=== PATIENT | female | born 1950 | race Caucasian/White ===

== ENCOUNTER 2021-07-30 09:38 | Inpatient (IN) | payer OTHER ==
[~2021-07-30] VITALS: Ht 170.2 cm; Wt 91.6 kg
[2021-07-30 09:40] VITALS: BP 148/73
[2021-07-30 10:26] LABS: HEMATOCRIT 34.4 % (37.0-47.0); HEMOGLOBIN 11.2 gm/dL (12.0-15.0); MCH 23.9 pg (26.0-34.0); MCHC 32.6 g/dL (28.0-37.0); MCV 73.4 fL (80.0-100.0); RBC 4.69 mil/uL (4.20-5.00); RDW 15.3 % (10.5-14.5); WBC 8.5 thou/uL (4.0-11.0)
[2021-07-30 10:46] LABS: ALBUMIN 3.2 g/dL (3.4-5.0); CREATININE 1.4 mg/dL (0.6-1.0); POTASSIUM 4.1 mmol/L (3.5-5.1); TOTAL BILIRUBIN 0.4 mg/dL (0.2-1.0); TOTAL PROTEIN 6.3 g/dL (6.4-8.2)
[2021-07-30 11:33] LABS: URINE BILIRUBIN NEGATIVE (Negative); URINE BLOOD TRACE (Negative); URINE CLARITY CLEAR; URINE COLOR YELLOW; URINE GLUCOSE-RANDOM* 3+ (Negative); URINE KETONES TRACE (Negative); URINE LEUKOCYTES-REFLEX NEGATIVE (Negative); URINE NITRITE-REFLEX NEGATIVE (Negative); URINE PROTEIN (DIPSTICK) NEGATIVE (Negative); URINE UROBILINOGEN 0.2 E.U./dl (0.2-1.0)
[2021-07-30 11:40] LABS: AMP/METHAMP Negative (Negative); BARBITURATES Negative (Negative); BENZODIAZEPINES Negative (Negative); COCAINE Negative (Negative); METHADONE Negative (Negative); OPIATES Negative (Negative); PCP Negative (Negative)
[2021-07-30] MEDS ORDERED: GLIPIZIDE ER2.5 MG PO (12:05)
[2021-07-30] MEDS ORDERED: NORVASC 2.5 MG2.5 M1 PO (12:05)
[2021-07-30] MEDS ORDERED: TRAZODONE HCL50 MG PO (12:06)
[2021-07-30] MEDS ORDERED: CELECOXIB100 MG PO (12:06)
[2021-07-30 15:06] LABS: BE(vivo) -2.3 mmol/L (-2 to +3); HCO3 21.6 mmol/L (22.0-26.0); PCO2 34.1 mmHg (35.0-45.0); PO2 88.8 mmHg (80.0-100.0); pH 7.419 (7.360-7.450)
[2021-07-30 15:38] LABS: % SATURATION 6 % (20-39); IRON 22 ug/dL (50-170); TIBC 355 ug/dL (250-450)
[2021-07-30 16:05] LABS: FOLIC ACID 17.1 ng/mL (8.6-58.9)
[2021-07-30 16:22] LABS: CALCIUM 9.6 mg/dL (8.5-10.1); CREATININE 1.1 mg/dL (0.6-1.0); MAGNESIUM 1.5 mg/dL (1.8-2.4); PHOSPHORUS 2.7 mg/dL (2.6-4.7); POTASSIUM 3.5 mmol/L (3.5-5.1)
[2021-07-30 21:19] LABS: CALCIUM 9.5 mg/dL (8.5-10.1); POTASSIUM 3.3 mmol/L (3.5-5.1)
[2021-07-30 21:24] LABS: ALBUMIN 3.2 g/dL (3.4-5.0); PHOSPHORUS 2.7 mg/dL (2.6-4.7)
[2021-07-30 21:39] VITALS: BP 169/63
[2021-07-31 03:05] LABS: GLYCOHEMOGLOBIN (HGB A1C) 13.1 % (4.8-5.6)
[2021-07-31 06:25] LABS: ABSOLUTE NEUTROPHILS 7.8 thou/uL (1.4-8.2); BASOPHILS 0.5 % (0.0-2.0); HEMATOCRIT 36.7 % (37.0-47.0); HEMOGLOBIN 11.5 gm/dL (12.0-15.0); LYMPHOCYTES 11.7 % (24.0-44.0); MCHC 31.4 g/dL (28.0-37.0); MCV 73.1 fL (80.0-100.0); MONOCYTES 9.3 % (1.0-8.0); PLATELET COUNT 322 thou/uL (150-400); POLYS 77.5 % (36.0-66.0); RBC 5.03 mil/uL (4.20-5.00); RDW 14.9 % (10.5-14.5); WBC 10.1 thou/uL (4.0-11.0)
[2021-07-31 06:57] LABS: ALBUMIN 2.8 g/dL (3.4-5.0); CALCIUM 9.3 mg/dL (8.5-10.1); MAGNESIUM 1.7 mg/dL (1.8-2.4); PHOSPHORUS 2.6 mg/dL (2.5-4.9); POTASSIUM 3.2 mmol/L (3.5-5.1); TOTAL BILIRUBIN 0.4 mg/dL (0.2-1.0); TOTAL PROTEIN 6.1 g/dL (6.4-8.2)
--- NOTE | 2021-07-31 08:05 | NUR ---
BLOOD SUGAR REASSESSED 114MG/DL NO TITRATION NEEDED ON INSULIN DRIP AT THIS TIME. INSULIN CONTINUES TO INFUSE AT 2UNITS/HR
--- NOTE | 2021-07-31 08:09 | EKG ---
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 : 1950 Requested By: Tasha Perez Order Number: [id number] : Efren Pederson Measurements Intervals [place] Rate: 99 P: 46 MO: 188 QRS: -25 QRSD: 90 T: 13 QT: 386 QTc: 496 Interpretive Statements Sinus rhythm Abnormal R-wave progression, early transition LVH with secondary repolarization abnormality No previous ECG available for comparison Electronically Signed On 07-31-2021 8:09:40 CDT by Efren Pederson [email or web address] <ELECTRONICALLY SIGNED> By: Efren Pederson MD, [facility] 07/31/21 0809 [id number] 6 Efren Pederson MD, FACC /EPI
[2021-07-31 08:57] VITALS: BP 202/93
[2021-07-31 09:24] VITALS: BP 151/129
--- NOTE | 2021-07-31 11:48 | EKG ---
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: : 1950 Requested By: Tasha Perez Order Number: [id number] : Efren Pederson Measurements Intervals [place] Rate: 88 P: 30 RI: 157 QRS: -30 QRSD: 98 T: 52 QT: 393 QTc: 476 Interpretive Statements Sinus rhythm Compared to ECG 07/30/2021 09:47:14 Left ventricular hypertrophy no longer present Early repolarization no longer present Electronically Signed On 07-31-2021 11:48:08 CDT by Efren Pederson [email or web address] <ELECTRONICALLY SIGNED> By: Efren Pederson MD, [facility] 07/31/21 1148 27 27 Efren Pederson MD, FACC /EPI
[2021-07-31 11:55] VITALS: BP 184/79
[2021-07-31 15:40] VITALS: BP 160/89
--- NOTE | 2021-07-31 18:37 | NUR ---
PT TX FROM ED THIS AM. PT IS IMPULSIVE AND CONFUSED. PT AFEBRILE, ADEQUATE UOP, NO BM, POOR APPETITE. INSULIN GTT OFF BEFORE COMING TO CCU. PT AND AT BEDSIDE HAVE BEEN THOUROUGHLY UPDATED AND EDUCATED ON PT CONDITION AND POC. PT SLOWLY PROGRESSING TOWARDS POC.
[2021-07-31 19:26] LABS: MAGNESIUM 1.4 mg/dL (1.8-2.4); PHOSPHORUS 3.3 mg/dL (2.6-4.7)
[2021-07-31 20:00] VITALS: BP 149/63
[2021-07-31 20:29] VITALS: BP 150/90
[2021-08-01 04:30] VITALS: BP 152/78
[2021-08-01 06:51] LABS: ABSOLUTE NEUTROPHILS 5.9 thou/uL (1.4-8.2); BASOPHILS 0.9 % (0.0-2.0); EOSINOPHILS 4.9 % (0.0-3.0); HEMATOCRIT 36.6 % (37.0-47.0); HEMOGLOBIN 11.4 gm/dL (12.0-15.0); LYMPHOCYTES 19.3 % (24.0-44.0); MCHC 31.3 g/dL (28.0-37.0); MCV 73.6 fL (80.0-100.0); MONOCYTES 9.9 % (1.0-8.0); PLATELET COUNT 309 thou/uL (150-400); RBC 4.97 mil/uL (4.20-5.00); RDW 15.3 % (10.5-14.5)
[2021-08-01 07:06] LABS: CALCIUM 9.5 mg/dL (8.5-10.1); PHOSPHORUS 3.7 mg/dL (2.5-4.9); POTASSIUM 3.8 mmol/L (3.5-5.1); TOTAL BILIRUBIN 0.8 mg/dL (0.2-1.0); TOTAL PROTEIN 6.3 g/dL (6.4-8.2)
[2021-08-01 07:45] VITALS: BP 168/71
--- NOTE | 2021-08-01 08:18 | NUR ---
PAIN WELL CONTROLLED.CONFUSED THIS MORNING AND TRYING TO GET OUT OF BED.PT TALKED TO HER SON ABOUT HER WANTING TO GO HOME.ONETIME OLANZAPINE GIVEN ORDERED.MONITOR SHOWS SR.POC CONTINUED
[2021-08-01 10:51] VITALS: BP 168/71
--- NOTE | 2021-08-01 11:00 | NUR ---
PT RESTING COMFORTABLY. AXO-4. PAIN CONTROLLED. PT AFEBRILE, ADEQUATE UOP, NO BM, APPROPRIATE APPETITE. PT AND AT BEDSIDE HAVE BEEN THOUROUGHLY UPDATED AND EDUCATED ON PT CONDITION AND POC. PT PROGRESSED TOWARDS POC. DC HOME TODAY WITH HOME HEALTH AND .
--- NOTE | 2021-08-01 11:28 | NUR ---
INITIAL ASSESSMENT/DISCHARGE NOTE: SW reviewed chart and spoke with nursing. 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 Pt is medically stable to discharge home today. Orders written for HH services. ROBERTO met with pt and spouse at bedside. Introduced role of SW. Pt is alert/orientated. Pt and spouse live at home. Pt does have a cane and walker to use if needed. Pt and spouse are both ready to discharge home and pt's spouse will drive pt home. ROBERTO discussed HH services and provided HH list for review. No preference of HH provider voiced. SW confirmed pt's home address and phone number. Pt's PCP is Dr. Sonny Hopkins. ROBERTO faxed HH referral and discharge ppwk to [facility] . Notified HH liaison of new referral. Contact info for HH placed in pt's discharge summary. No additional SW needs identified at this time, but is available to assist should needs arise.
[2021-08-02 15:08] LABS: GLOBULIN TOTAL 2.8 g/dL (2.2-3.9); M-SPIKE 0.2 g/dL (Not Observed)
== END 2021-08-01 11:41 | disposition home health service (06) | DRG 637 ==
LOC: ER 09:38 → 2N 12:00 → EROBS 12:00 → 2N 07-31 09:42
PROVIDERS: Emergency Medicine; ADMIT Internal Medicine; ATTEND Internal Medicine
DX: E11.10 Type 2 diabetes mellitus with ketoacidosis without coma (principal); N17.0 Acute kidney failure with tubular necrosis; G93.41 Metabolic encephalopathy; I16.0 Hypertensive urgency; M19.09 Primary osteoarthritis, other specified site; G89.29 Other chronic pain; E53.8 Deficiency of other specified B group vitamins; M54.9 Dorsalgia, unspecified; I12.9 Hypertensive chronic kidney disease with stage 1 through stage 4 chronic kidney disease, or unspecified chronic kidney disease; N23 Unspecified renal colic; E11.65 Type 2 diabetes mellitus with hyperglycemia; M54.2 Cervicalgia; N18.30 Chronic kidney disease, stage 3 unspecified; E83.42 Hypomagnesemia; E11.22 Type 2 diabetes mellitus with diabetic chronic kidney disease; E87.6 Hypokalemia; Z20.822 Contact with and (suspected) exposure to COVID-19; Z79.899 Other long term (current) drug therapy; Z80.1 Family history of malignant neoplasm of trachea, bronchus and lung; Z82.49 Family history of ischemic heart disease and other diseases of the circulatory system
CPT/HCPCS: 10081